=== PATIENT | female | born 1995 | race Caucasian/White ===

== ENCOUNTER 2016-10-23 16:45 | Observation (INO) | payer MEDICAID ==
[~2016-10-23] VITALS: Ht 162.6 cm; Wt 98.9 kg
[~2016-10-23 16:45] MED LIST: HYDR-523 PO; NORT10CA PO
[2016-10-23] MEDS ORDERED: CEFAZOLIN 2,000 MG in DEXT 5% WATER 100 ML IV SCH (18:00)
[2016-10-23] MEDS ORDERED: LACTATED RINGERS 1,000 ML IV SCH (18:00)
[2016-10-23 18:10] LABS: CLARITY URINE CLEAR (CLEAR); COLOR URINE YELLOW (YELLOW); GLUCOSE URINE NEGATIVE (NEGATIVE); KETONES URINE 1+ (NEGATIVE); LEUKOCYTE ESTERASE URINE 1+ (NEGATIVE); NITRITE URINE NEGATIVE (NEGATIVE); OCCULT BLOOD URINE NEGATIVE (NEGATIVE); PH URINE 6.5 (4.5-8.0); PROTEIN URINE NEGATIVE (NEGATIVE); SPECIFIC GRAVITY URINE 1.008 (1.005-1.030); UROBILINOGEN URINE 0.2 E.U./dL (0.2-1.0)
[2016-10-23 18:25] LABS: BACTERIA URINE 1+; RBC URINE 0-2 /hpf (0-2); SQUAMOUS EPITHELIAL CELL URINE 1+ /lpf (RARE/1+)
== END 2016-10-23 19:50 | disposition home or self-care (01) ==
LOC: L&D 16:45
PROVIDERS: ADMIT Obstetrics & Gynecology; ATTEND Obstetrics & Gynecology
DX: O26.893 Other specified pregnancy related conditions, third trimester (principal); R10.30 Lower abdominal pain, unspecified; Z3A.29 29 weeks gestation of pregnancy
CPT/HCPCS: 81001; 96365; 99281; G0378; J0690; J7120; 96360; 96361; J7060

== ENCOUNTER 2016-10-27 12:47 | Observation (INO) | payer MEDICAID ==
[~2016-10-27] VITALS: Ht 162.6 cm; Wt 98.4 kg
[2016-10-27] MEDS ORDERED: MVI, ADULT NO.1 10 ML in DEXT 5%/LACTATED RINGERS 1,000 ML IV NR ×2 (13:30)
[2016-10-27] MEDS ORDERED: ONDANSETRON HCL 4MG/2ML VIAL IV NR (13:30)
== END 2016-10-27 15:40 | disposition home or self-care (01) ==
LOC: L&D 12:47
PROVIDERS: ADMIT Specialist; ATTEND Specialist
DX: O21.2 Late vomiting of pregnancy (principal); Z3A.30 30 weeks gestation of pregnancy
CPT/HCPCS: 36415; 80051; 96365; 96366; 96375; 99281; G0378; J2405; J3490; J7120; J7121; 96360; 96361

== ENCOUNTER 2016-12-05 09:40 | Observation (INO) | payer MEDICAID ==
[~2016-12-05] VITALS: Ht 165.1 cm; Wt 101.2 kg
[2016-12-05 10:39] LABS: CLARITY URINE CLEAR (CLEAR); COLOR URINE YELLOW (YELLOW); GLUCOSE URINE NEGATIVE (NEGATIVE); KETONES URINE NEGATIVE (NEGATIVE); LEUKOCYTE ESTERASE URINE TRACE (NEGATIVE); NITRITE URINE NEGATIVE (NEGATIVE); OCCULT BLOOD URINE NEGATIVE (NEGATIVE); PROTEIN URINE NEGATIVE (NEGATIVE); SPECIFIC GRAVITY URINE 1.009 (1.005-1.030)
[2016-12-05 11:10] LABS: RBC URINE 0-2 /hpf (0-2); SQUAMOUS EPITHELIAL CELL URINE 2+ /lpf (RARE/1+)
[2016-12-05 11:11] LABS: BACTERIA URINE 2+
[2016-12-05] MEDS ORDERED: LACTATED RINGERS 1,000 ML IV SCH (11:45)
[2016-12-05] MEDS ORDERED: CEFAZOLIN 2,000 MG in DEXT 5% WATER 100 ML IV NR (12:30)
== END 2016-12-05 12:40 | disposition home or self-care (01) ==
LOC: L&D 09:40
PROVIDERS: ADMIT Specialist; ATTEND Specialist
DX: O26.893 Other specified pregnancy related conditions, third trimester (principal); Z3A.36 36 weeks gestation of pregnancy; R10.2 Pelvic and perineal pain
CPT/HCPCS: 81001; 96365; 99281; G0378; J0690; J7120; 96360; J7060

== ENCOUNTER 2016-12-18 16:58 | Observation (INO) | payer MEDICAID ==
[~2016-12-18] VITALS: Ht 165.1 cm; Wt 96.2 kg
[2016-12-18] MEDS: SODIUM CHLORIDE 0.9% 1,000 ML IV SCH ×2 (17:45→18:26)
[2016-12-18 18:10] LABS: CLARITY URINE CLEAR (CLEAR); COLOR URINE YELLOW (YELLOW); GLUCOSE URINE NEGATIVE (NEGATIVE); KETONES URINE NEGATIVE (NEGATIVE); LEUKOCYTE ESTERASE URINE NEGATIVE (NEGATIVE); NITRITE URINE NEGATIVE (NEGATIVE); OCCULT BLOOD URINE NEGATIVE (NEGATIVE); PROTEIN URINE NEGATIVE (NEGATIVE); SPECIFIC GRAVITY URINE 1.009 (1.005-1.030); UROBILINOGEN URINE 0.2 E.U./dL (0.2-1.0)
== END 2016-12-18 19:00 | disposition home or self-care (01) ==
LOC: L&D 16:58
PROVIDERS: ADMIT Specialist; ATTEND Specialist
DX: O26.893 Other specified pregnancy related conditions, third trimester (principal); R10.9 Unspecified abdominal pain; R10.2 Pelvic and perineal pain; R30.9 Painful micturition, unspecified; R35.0 Frequency of micturition; Z3A.36 36 weeks gestation of pregnancy
CPT/HCPCS: 81003; 96360; 96361; 99281; G0378; J7030

== ENCOUNTER 2017-02-27 20:15 | Emergency (ER) | payer MEDICAID ==
[~2017-02-27] VITALS: Ht 162.6 cm; Wt 97.0 kg
[2017-02-27] MEDS ORDERED: HYDROCODONE/ACETAMINOPHEN 5/325MG TABLET PO ONE (22:15)
[2017-02-27 22:54] VITALS: BP 128/79
== END 2017-02-27 22:53 | disposition home or self-care (01) ==
LOC: ER 20:15
DX: K08.89 Other specified disorders of teeth and supporting structures (principal); R51 Headache
CPT/HCPCS: 99283

== ENCOUNTER 2017-03-05 22:48 | Emergency (ER) | payer MEDICAID ==
[~2017-03-05] VITALS: Ht 162.6 cm; Wt 96.0 kg
[2017-03-06] MEDS ORDERED: HYDROCODONE/ACETAMINOPHEN 10/325MG TABLET PO ONE (01:45)
[2017-03-06] MEDS ORDERED: KETOROLAC 60MG/2ML VIAL IM ONE (02:15)
[2017-03-06 02:23] VITALS: BP 123/62
== END 2017-03-06 04:28 | disposition home or self-care (01) ==
LOC: ER 22:50
DX: S16.1XXA Strain of muscle, fascia and tendon at neck level, initial encounter (principal); S43.401A Unspecified sprain of right shoulder joint, initial encounter; V49.88XA Car occupant (driver) (passenger) injured in other specified transport accidents, initial encounter; Y93.89 Activity, other specified; Y92.89 Other specified places as the place of occurrence of the external cause; Y99.8 Other external cause status
CPT/HCPCS: 72040; 72100; 73030; 73060; 81025; 96372; 99284; J1885; Z7610

== ENCOUNTER 2017-05-17 10:42 | Emergency (ER) | payer MEDICAID ==
[~2017-05-17] VITALS: Ht 162.6 cm; Wt 97.0 kg
[2017-05-17] MEDS ORDERED: SODIUM CHLORIDE 0.9% 1,000 ML IV ONE (15:00)
[2017-05-17] MEDS ORDERED: ACETAMINOPHEN 325MG TABLET PO ONE (15:00)
[2017-05-17] MEDS ORDERED: PENICILLIN G BENZATHINE 1,200,000 UNITS/2ML SYR IM NR (17:30)
[2017-05-17 17:52] VITALS: BP 109/67
== END 2017-05-17 18:02 | disposition home or self-care (01) ==
LOC: ER 10:42
DX: J02.0 Streptococcal pharyngitis (principal)
CPT/HCPCS: 87430; 87804; 96372; 99284; J0561; J7030; Z7610

== ENCOUNTER 2021-11-08 16:52 | Emergency (ER) | payer MEDICAID ==
[~2021-11-08] VITALS: Ht 165.1 cm; Wt 72.0 kg
[2021-11-08 18:11] LABS: BASOPHILS % 0.5 % (0.0-2.0); EOSINOPHILS % 0.9 % (0.0-5.0); HEMATOCRIT. 37.1 % (36.0-48.0); HEMOGLOBIN. 12.4 g/dL (12.0-16.0); MEAN CORPUSCULAR HEMOGLOBIN 26.1 pg (28.0-32.0); MEAN CORPUSCULAR VOLUME 78.4 fL (81.0-99.0); MEAN PLATELET VOLUME 9.2 fl (7.4-10.4); MONOCYTES % 6.4 % (2.0-8.0); NEUTROPHILS % 63.2 % (40.0-76.0); PLATELET 373 x1000/uL (130-400); RED BLOOD CELL COUNT 4.73 mill/uL (4.2-5.4); RED CELL DISTRIBUTION WIDTH 15.9 % (11.6-14.6)
[2021-11-08 18:16] LABS: CHLORIDE 109 mEq/L (98-107)
[2021-11-08 18:26] LABS: B-HCG QUANTITATIVE < 1 mIU/mL (<3)
[2021-11-08] MEDS ORDERED: ACETAMINOPHEN 325MG TABLET PO ONE (18:30)
[2021-11-08 19:00] LABS: CLARITY URINE CLEAR (CLEAR); COLOR URINE YELLOW (YELLOW); KETONES URINE NEGATIVE (NEGATIVE); LEUKOCYTE ESTERASE URINE NEGATIVE (NEGATIVE); NITRITE URINE NEGATIVE (NEGATIVE); OCCULT BLOOD URINE NEGATIVE (NEGATIVE); PH URINE 6.5 (4.5-8.0); PROTEIN URINE NEGATIVE (NEGATIVE); SPECIFIC GRAVITY URINE 1.006 (1.005-1.030); UROBILINOGEN URINE 0.2 E.U./dL (0.2-1.0)
[2021-11-08] MEDS ORDERED: IBUP-2029 MT (20:36)
[2021-11-08 20:46] VITALS: BP 133/86
== END 2021-11-08 20:47 | disposition home or self-care (01) ==
LOC: ER 16:52
DX: R10.9 Unspecified abdominal pain (principal); F41.9 Anxiety disorder, unspecified; Z98.51 Tubal ligation status; Z90.49 Acquired absence of other specified parts of digestive tract
CPT/HCPCS: 36415; 76830; 76856; 80053; 81003; 84702; 85025; 86850; 86900; 99284